=== PATIENT | male | born 1980 | race Asian ===

== ENCOUNTER 2019-08-31 13:05 | Emergency (ER) | payer MEDICAID ==
[~2019-08-31] VITALS: Ht 175.3 cm; Wt 68.5 kg
[2019-08-31 16:36] LABS: BASOPHILS % (AUTO) 0.4 % (0-1); EOSINOPHILS # (AUTO) 0.1 X10'3 (0-0.9); LYMPHOCYTES # (AUTO) 3.1 X10'3 (1.1-4.8); NEUTROPHILS # (AUTO) 7.8 X10'3 (1.8-7.7)
[2019-08-31 16:38] LABS: EOSINOPHILS % (AUTO) 0.9 % (0-6); HEMATOCRIT 48.1 % (42.0-52.0); HEMOGLOBIN 15.9 g/dl (14.0-17.9); LYMPHOCYTES % (AUTO) 25.5 % (21-51); MEAN CORPUSCULAR HEMOGLOBIN 25.4 PG (27.0-31.0); MEAN CORPUSCULAR VOLUME 77.1 FL (78-98); MEAN PLATELET VOLUME 8.2 FL (7.4-10.4); MONOCYTES # (AUTO) 1.1 X10'3 (0-0.9); MONOCYTES % (AUTO) 8.8 % (2-12); NEUTROPHILS % (AUTO) 64.4 % (42-75); PLATELET COUNT 230 X10'3 (140-440); RED BLOOD COUNT 6.23 X10'6 (4.70-6.10); RED CELL DISTRIBUTION WIDTH 14.5 % (11.5-14.5)
[2019-08-31] MEDS ORDERED: LORazepam 1 MG tablet PO ONE (16:50)
[2019-08-31 16:54] LABS: ALANINE AMINOTRANSFERASE 55 U/L (12-78); ALBUMIN 4.2 G/DL (3.4-5.0); ALBUMIN/GLOBULIN RATIO 1.1 (1.1-1.5); ALKALINE PHOSPHATASE 183 IU/L (46-116); ANION GAP 10 (8-16); ASPARTATE AMINO TRANSFERASE 23 U/L (10-37); BILIRUBIN,TOTAL 0.5 MG/DL (0.1-1.0); BLOOD UREA NITROGEN 6 MG/DL (7-18); BUN/CREATININE RATIO 5.7 (5.4-32.0); CALCIUM 9.6 MG/DL (8.5-10.1); CHLORIDE 105 MMOL/L (99-107); CREATININE 1.05 MG/DL (0.60-1.10); GLUCOSE 124 MG/DL (70-104); POTASSIUM 3.3 MMOL/L (3.5-5.1); SODIUM 143 MMOL/L (135-145); TOTAL CARBON DIOXIDE 27.9 MMOL/L (24-32); TOTAL PROTEIN 8.1 G/DL (6.4-8.2); eGFR 79 ML/MIN
[2019-08-31 17:02] LABS: TROPONIN I < 0.04 NG/ML (0.0-0.05)
[2019-08-31 17:23] LABS: ETHANOL < 0.010 GM/DL (0.0-0.010)
--- NOTE | 2019-08-31 17:27 | NUR ---
PATIENT ESCORTED TO BATHROOM AT THIS TIME AND GIVEN URINAL FOR SAMPLE BUT PATIENT PLACE TAP WATER INTO URINAL. PATIENT CONFUSED BUT EASILY RE DIRECTED BACK TO ROOM.
[2019-08-31] MEDS ORDERED: haloperidol lactate 5mg/ml inj IM ONE ×2 (17:55→22:10)
[2019-08-31] MEDS ORDERED: diphenhydrAMINE 50 mg/ml inj IM ONE ×2 (17:55→22:10)
[2019-08-31] MEDS ORDERED: LORazepam 2 mg/ml vial IM ONE ×2 (17:55→22:10)
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
[2019-08-31] MEDS ORDERED: NO HOME MEDS (18:09)
--- NOTE | 2019-08-31 18:50 | NUR ---
pt sleeping, he has been taken off all restraints at this time. He is now in Overflow RM 25
--- NOTE | 2019-08-31 21:12 | NUR ---
pt briefly was awake. he was instructed to provide urine test. he was given a urinal. he then dozed back to sleep. no urine sample collected yet.
--- NOTE | 2019-08-31 21:37 | NUR ---
The patient was resting on his bed. He was made aware that a urine sample was needed.
--- NOTE | 2019-08-31 22:11 | NUR ---
The patient was incontinent of a large amount of urine. He is very disorganized. He attempted to drink out of a urinal then he attempted to spit in it. Provider made aware.
--- NOTE | 2019-08-31 22:45 | NUR ---
The patient is resting on his bed and appears to be sleeping.
--- NOTE | 2019-09-01 03:40 | NUR ---
The patient appears to be sleeping.
--- NOTE | 2019-09-01 05:05 | NUR ---
The patient appears to be sleeping.
--- NOTE | 2019-09-01 06:30 | NUR ---
pt is walking around. pt is confused is not making any sense. ask pt for urine sample and he filled the sample cup with water.
[2019-09-01] MEDS ORDERED: risperiDONE 2mg tablet PO ONE (07:25)
--- NOTE | 2019-09-01 07:30 | NUR ---
pt is still very confused. he doesnt know that simple objects are. for example is very curious of his blood pressure and keeps asking what it is used for.
[2019-09-01 09:06] LABS: URINE AMPHETAMINE SCREEN NEGATIVE (Neg); URINE BARBITUATE SCREEN NEGATIVE (Neg); URINE BENZODIAZEPINES SCREEN NEGATIVE (Neg); URINE CANNABINOID SCREEN NEGATIVE (Neg); URINE COCAINE SCREEN NEGATIVE (Neg); URINE METHADONE SCREEN NEGATIVE (Neg); URINE OPIATE SCREEN NEGATIVE (Neg); URINE PHENCYCLIDINE SCREEN NEGATIVE (Neg)
[2019-09-01 09:25] LABS: CLARITY,URINE CLEAR (Clear); COLOR,URINE YELLOW (Yellow); GLUCOSE, URINE NEGATIVE (Neg); KETONES,URINE NEGATIVE (Neg); LEUKOCYTE ESTERASE ,URINE NEGATIVE (Neg); NITRITES, URINE NEGATIVE (Neg); OCCULT BLOOD,URINE NEGATIVE (Neg); PROTEIN,URINE NEGATIVE (Neg); UA COLLECTION TYPE CLN CATCH MIDSTREAM
--- NOTE | 2019-09-01 11:30 | NUR ---
PT IS SLEEPING
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
--- NOTE | 2019-09-01 13:00 | NUR ---
PT IS SLEEPING
--- NOTE | 2019-09-01 14:11 | NUR ---
PT IS RESTING
--- NOTE | 2019-09-01 17:19 | NUR ---
brother does not knowing what medication the patient is suppose to be on. there is no medication hx and the patient also doesnt know what medications he is suppose to take.
--- NOTE | 2019-09-01 17:21 | NUR ---
pt is charging his ankle monitor
[2019-09-01 17:56] VITALS: BP 129/86
--- NOTE | 2019-09-01 17:57 | NUR ---
pt is laying in bed. he is suppose to be charging his monitor
--- NOTE | 2019-09-01 19:40 | NUR ---
[facility] called, they had questions in regard to the patient's behavior. They will see if they can accept them and get back to us. Pt may need a covid swab prior to going. Will wait to see if pt is accepted and will get an order for a rapid covid swab verses a send out. They have been given [facility] phone number for further information.
--- NOTE | 2019-09-01 20:44 | NUR ---
pt accepted to [facility]. They would like a rapid covid test done. Dr. Villarreal got the ok from Dr. Giraldo. Order placed and swab sent to lab. Allie from [facility] made aware and will be sending a speedboat driver.
--- NOTE | 2019-09-01 21:22 | NUR ---
Report given to nurse Trinh from [facility]. Covid test negative. Manager Of Selection And Assessment should be here anytime to pick pt up. Pt is dressed in sweat pants and sweater.
== END 2019-09-01 21:45 ==
LOC: ER 13:05
DX: Z03.818 Encounter for observation for suspected exposure to other biological agents ruled out (principal); F23 Brief psychotic disorder; G89.29 Other chronic pain; F12.90 Cannabis use, unspecified, uncomplicated; F15.90 Other stimulant use, unspecified, uncomplicated; Z56.0 Unemployment, unspecified
CPT/HCPCS: 80053; 80305; 80320; 81003; 84443; 84484; 85025; 87635; 96372; 99285; J1200; J1630; J2060

== ENCOUNTER 2023-09-15 10:39 | Emergency (ER) | payer MEDICAID ==
[~2023-09-15] VITALS: Ht 172.7 cm; Wt 81.1 kg
[~2023-09-15 10:39] MED LIST: NO HOME MEDS
[2023-09-15] MEDS ORDERED: METH-604 PO (14:39)
[2023-09-15 14:44] VITALS: BP 114/68; PULSE 78; RESP 16; TEMP 98.3; O2SAT 98
== END 2023-09-15 14:45 | disposition home or self-care (01) ==
LOC: ER 10:40
DX: E05.90 Thyrotoxicosis, unspecified without thyrotoxic crisis or storm (principal); G89.29 Other chronic pain; M54.9 Dorsalgia, unspecified; F17.200 Nicotine dependence, unspecified, uncomplicated; F12.90 Cannabis use, unspecified, uncomplicated; F15.90 Other stimulant use, unspecified, uncomplicated; Z79.899 Other long term (current) drug therapy
CPT/HCPCS: 36415; 84443; 99283

== ENCOUNTER 2024-01-29 13:33 | Emergency (ER) | payer MEDICAID ==
[~2024-01-29] VITALS: Ht 177.8 cm; Wt 89.0 kg
[~2024-01-29 13:33] MED LIST changes: +METH-604 PO
[2024-01-29 15:28] LABS: BASOPHILS # (AUTO) 0.1 X10'3 (0-0.2); BASOPHILS % (AUTO) 0.6 % (0-1); EOSINOPHILS # (AUTO) 0.1 X10'3 (0-0.9); EOSINOPHILS % (AUTO) 0.7 % (0-6); HEMATOCRIT 45.5 % (42.0-52.0); HEMOGLOBIN 15.4 g/dl (14.0-17.9); LYMPHOCYTES # (AUTO) 3.1 X10'3 (1.1-4.8); LYMPHOCYTES % (AUTO) 28.3 % (21-51); MEAN CORPUSCULAR HEMOGLOBIN 27.4 PG (27.0-31.0); MEAN CORPUSCULAR HGB CONC 33.8 g/dL (33.0-36.5); MEAN CORPUSCULAR VOLUME 81.2 FL (78-98); MEAN PLATELET VOLUME 7.8 FL (7.4-10.4); MONOCYTES # (AUTO) 0.6 X10'3 (0-0.9); MONOCYTES % (AUTO) 5.3 % (2-12); NEUTROPHILS # (AUTO) 7.1 X10'3 (1.8-7.7); NEUTROPHILS % (AUTO) 65.1 % (42-75); PLATELET COUNT 290 X10'3 (140-440); RED BLOOD COUNT 5.61 X10'6 (4.70-6.10); RED CELL DISTRIBUTION WIDTH 14.8 % (11.5-14.5)
[2024-01-29 15:53] LABS: ALBUMIN 4.5 G/DL (3.4-5.0); ANION GAP 8 (8-16); BLOOD UREA NITROGEN 15 MG/DL (7-18); BUN/CREATININE RATIO 14.9 (10.0-20.0); CALCIUM 8.9 MG/DL (8.5-10.1); CHLORIDE 103 MMOL/L (99-107); CREATININE 1.01 MG/DL (0.60-1.10); ETHANOL < 10 MG/DL (<10); GLUCOSE 130 MG/DL (70-104); POTASSIUM 3.7 MMOL/L (3.5-5.1); SODIUM 139 MMOL/L (135-145); THYROID STIMULATING HORMONE 5.27 ulU/ml (0.34-4.50); TOTAL CARBON DIOXIDE 28.3 MMOL/L (24-32); eCRCL 98 ML/MIN; eGFR 81 ML/MIN
[2024-01-29 16:37] LABS: BILIRUBIN,URINE NEGATIVE (Neg); CLARITY,URINE CLEAR (Clear); COLOR,URINE YELLOW (Yellow); GLUCOSE, URINE NEGATIVE (Neg); KETONES,URINE NEGATIVE (Neg); LEUKOCYTE ESTERASE ,URINE NEGATIVE (Neg); NITRITES, URINE NEGATIVE (Neg); OCCULT BLOOD,URINE NEGATIVE (Neg); PH,URINE 6.5 (4.8-8.0); PROTEIN,URINE NEGATIVE (Neg); UROBILINOGEN,URINE 0.2 E.U/dL (0.2-1.0)
[2024-01-29 16:43] LABS: UA COLLECTION TYPE CLN CATCH MIDSTREAM
[2024-01-29 16:51] LABS: URINE AMPHETAMINE SCREEN NEGATIVE (Neg); URINE BARBITUATE SCREEN NEGATIVE (Neg); URINE BENZODIAZEPINES SCREEN NEGATIVE (Neg); URINE CANNABINOID SCREEN NEGATIVE (Neg); URINE COCAINE SCREEN NEGATIVE (Neg); URINE METHADONE SCREEN NEGATIVE (Neg); URINE OPIATE SCREEN NEGATIVE (Neg); URINE PHENCYCLIDINE SCREEN NEGATIVE (Neg)
[2024-01-29] MEDS: ziprasidone IM 20mg inj **IM only IM ONE (16:59)
[2024-01-29] MEDS ORDERED: METH-604 PO (22:14)
[2024-01-29 23:31] LABS: FREE T4 (FREE THYROXINE) 0.78 NG/DL (0.73-1.40)
[2024-01-30] MEDS: LORazepam 1 MG tablet PO ONE (02:13)
[2024-01-30] MEDS: diphenhydrAMINE 25mg capsule PO ONE (02:13)
[2024-01-30] MEDS: haloperidol lactate 5mg/ml inj IM ONE (06:31)
[2024-01-30] MEDS: LORazepam 2 mg/ml vial IM ONE (06:32)
[2024-01-30] MEDS: diphenhydrAMINE 50 mg/ml inj IM ONE (06:32)
[2024-01-30 07:00] VITALS: BP 132/88; PULSE 79; TEMP 97.9; O2SAT 98
[2024-01-30 11:21] VITALS: RESP 15
[2024-01-30] MEDS: methimazole 5mg tablet PO SCH (12:19)
== END 2024-01-30 17:30 | disposition home or self-care (01) ==
LOC: ER 13:33
DX: F99 Mental disorder, not otherwise specified (principal); Z20.822 Contact with and (suspected) exposure to COVID-19; G89.29 Other chronic pain; F12.90 Cannabis use, unspecified, uncomplicated; F15.90 Other stimulant use, unspecified, uncomplicated; Z79.899 Other long term (current) drug therapy
CPT/HCPCS: 36415; 80048; 80305; 80320; 81003; 84439; 84443; 85025; 87811; 96372; 99284; J1200; J1630; J2060; J3486; Q0163